=== PATIENT | male | born 2000 | race Hispanic/Latino ===

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

== ENCOUNTER 2018-04-24 22:16 | Emergency (ER) | payer MEDICAID ==
[2018-04-24 22:49] VITALS: TEMP 98.2; BMI 32.5
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
[2018-04-24 23:14] VITALS: BP 132/86; PULSE 88; RESP 18; O2SAT 100
== END 2018-04-24 23:10 | disposition home or self-care (01) ==
LOC: ED 22:16
DX: K08.89 Other specified disorders of teeth and supporting structures (principal); F17.210 Nicotine dependence, cigarettes, uncomplicated